=== PATIENT | male | born 1995 | race Caucasian/White ===

== ENCOUNTER 2023-12-30 14:22 | Outpatient (CLI) | payer OTHER, SELFPAY ==
--- NOTE | 2023-12-30 14:28 | XRR_ITS ---
PROCEDURE INFORMATION: Exam: XR Thoracic Spine Exam date and time: 12/30/2023 2:33 PM Age: 28 years old Clinical indication: Pain in thoracic spine; Additional info: Thoracic back pain TECHNIQUE: Imaging protocol: Radiologic exam of the thoracic spine. Views: 3 views. COMPARISON: No relevant prior studies available. FINDINGS: Bones/joints: Normal. No acute fracture. Normal alignment. Soft tissues: Unremarkable. XR/XR thoracic spine 3V* [id number] IMPRESSION: No acute findings.
== END 2023-12-30 14:23 | disposition home or self-care (01) ==
LOC: RAD 14:27
PROVIDERS: PCP Family Medicine; Visit Provider Family Medicine
DX: M54.6 Pain in thoracic spine (principal)
CPT/HCPCS: 72072

== ENCOUNTER 2024-06-03 06:27 | Emergency (ER) | payer OTHER, SELFPAY ==
[2024-06-03 06:28] VITALS: BP 168/94; PULSE 62; RESP 18; TEMP 36.7; O2SAT 96; BMI 41.8
--- NOTE | 2024-06-03 06:32 | CTR_ITS ---
PROCEDURE INFORMATION: Exam: CT Head Without Contrast Exam date and time: 06/03/2024 6:45 AM Age: 29 years old Clinical indication: Stroke-like symptoms; Headache; Left facial droop; Additional info: Symptoms of acute stroke TECHNIQUE: Imaging protocol: Computed tomography of the head without contrast. Radiation optimization: All CT scans at this facility use at least one of these dose optimization techniques: automated exposure control; mA and/or kV adjustment per patient size (includes targeted exams where dose is matched to clinical indication); or iterative reconstruction. Other technique: STROKE PROTOCOL was implemented. COMPARISON: No relevant prior studies available. RADIATION DOSE METRICS: Total DLP (mGy-cm): 1156 FINDINGS: Brain: There is vasogenic edema involving the right temporal lobe with suspected underlying mass adjacent to the inner table of the skull measuring 4.6 cm AP dimension by 2 cm transverse dimension by 6 cm craniocaudad dimension. There is shift of midline structures from right to left measuring 11-12 mm. There is mild hydrocephalus involving the left ventricle with possible trapped temporal horn of the right lateral ventricle. There may be a degree of subfalcine herniation and uncal herniation. No intracranial hemorrhage is appreciated. Cerebral ventricles: Please see above comments. Paranasal sinuses: Visualized sinuses are unremarkable. No fluid levels. Mastoid air cells: Visualized mastoid air cells are well aerated. Bones: Old craniotomy defect is noted involving the right posterior fossa. No bony abnormalities are otherwise appreciated. Soft tissues: Unremarkable. CT/CT head thrombolytic 08060 IMPRESSION: 1. Vasogenic edema on the right with mass effect as above. There appears to be an underlying peripheral mass. Further evaluation with MRI with without IV contrast would be recommended. ASSESSMENT: ASPECTS ([place] Stroke Program Early CT Score) is 10.
[2024-06-03 06:44] VITALS: BP 168/94; PULSE 60; RESP 20; O2SAT 97
--- NOTE | 2024-06-03 07:06 | W.ED.NEUROSD ---
HPI - Neuro Symptoms/Deficit General: Chief Complaint: Neuro Symptoms/Deficit Stated Complaint: L SIDED FACIAL DROOP Time Seen by Provider: 06/03/24 06:30 History of Present Illness: 29-year-old male brought in with slurred speech and left-sided facial droop that they noticed this morning. Patient's states she found him on the floor this morning patient's been having severe right sided headaches for about a week. She reports she been having tension headaches since he hurt his back for a while. That she has been taking all kinds of medication to help with the pain and nothing's been helping. Associated symptoms: Reports headache(s); Deny chest pain, nausea or vomiting Related Data Home Medications Medication Instructions Recorded Confirmed No Known Home Medications 10/18/22 11/29/22 Allergies Allergy/AdvReac Type Severity Reaction Status Date / Time No Known Allergies Allergy Verified 06/03/24 06:32 Review of Systems Const: Denies: fever(s), chills or fatigue Card: Denies: chest pain or palpitations Resp: Reports: wheezing; Denies: dyspnea or productive cough GI: Denies: abdominal pain, nausea or vomiting : Denies: flank pain or difficulty urinating Skin/Breast: Denies: rash Neuro: Reports: headache(s) and Slurred speech present; Denies: weakness in extremities Psych: Denies: anxiety or depression [facility] ED PFSH: Medical History No pertinent past medical history Surgical History History of cranial surgery Physical Exam Const: COMMON NORMALS: no acute distress and patient oriented x3 Resp: COMMON NORMALS: normal respiratory effort, No retractions and No use of accessory muscles Cardio: COMMON NORMALS: regular rate and regular rhythm RATE: regular rate RHYTHM: regular rhythm GI: COMMON NORMALS: Soft to palpation and non-tender PALPATION: Yes Soft to palpation Extremity: COMMON NORMALS: full ROM Neuro: COMMON NORMALS: patient oriented x3 SPEECH: abnormal speech (Mild) Details: slurred OTHER: minimal left facial droop Psych: COMMON NORMALS: mental status grossly normal and Normal thought process present THOUGHT PROCESS: Normal thought process present Skin: COMMON NORMALS: no rashes or lesions noted GENERAL SKIN EXAM: no rashes or lesions noted Course Vital Signs: Vital signs: Vital Signs Temperature 98.0 F 06/03/24 06:28 Pulse Rate 60 06/03/24 07:20 Respiratory Rate 23 H 06/03/24 07:20 Blood Pressure 168/94 06/03/24 07:20 Pulse Oximetry 94 06/03/24 07:20 Oxygen Delivery Me thod Room Air 06/03/24 06:44 MDM - Neuro Symptoms/Deficit Medical Decision Making Patient's imaging is consistent with likely right sided brain mass which would account for his symptoms. Patient was given 10 mg IV dexamethasone due to the vasogenic edema with mass effect. Case reviewed with neurosurgery at [facility] in [place] with accepting patient with ER to ER transfer with accepting ER physician Dr. [place] patient was transferred via helicopter in stable condition Lab Data Radiology Impressions Head CT 06/03/24 06:32 IMPRESSION: 1. Vasogenic edema on the right with mass effect as above. There appears to be an underlying peripheral mass. Further evaluation with MRI with without IV contrast would be recommended. ASSESSMENT: ASPECTS ([place] Stroke Program Early CT Score) is 10. ADDENDUM: 06/03/24 0709 COMMENT: THIS REPORT CONTAINS FINDINGS THAT MAY BE CRITICAL TO PATIENT CARE. The exam findings were verbally communicated by me to TEREZA NUNO via telephone conference at 7:07 AM CDT on 06/03/2024. The findings were acknowledged and understood. Laboratory Results POC Glucose 134 mg/dL (70-110) H 06/03/24 06:31 All radiology interpretation(s) finalized by discharge Discharge Plan Discharge Patient Disposition: Xfer Short-Term Hosp Clinical Impression: Mass, brain Condition: Stable Referrals: Natan George MD [Primary Care Provider] - Coding Level of Care Code ED [employer] for [employer] Jenaro
[2024-06-03 07:18] LABS: Glucose Point of Care 134 mg/dL (70-110)
[2024-06-03 07:20] VITALS: BP 168/94; PULSE 60; RESP 23; O2SAT 94
--- NOTE | 2024-06-03 07:27 | ECG_ITS ---
[facility] Test Date: 2024-06-03 Pat Name: Tee Morocho Department: Room: Gender: Male Continuing Education Specialist: : 1995 Requested By: Kory Nuno Order Number: [id number] Malcolm MD: MILI HERNANDEZ Measurements Intervals [place] Rate: 53 P: 31 MD: 186 QRS: 27 QRSD: 127 T: 62 QT: 423 QTc: 398 Interpretive Statements SINUS BRADYCARDIA MODERATE INTRAVENTRICULAR CONDUCTION DELAY [110+ ms QRS DURATION] No previous ECG available for comparison Electronically Signed On 06-03-2024 20:06:03 CDT by MILI HERNANDEZ [email or web address]
[2024-06-03] MEDS: dexamethasone 10 mg/mL INJ IVP (07:28)
--- NOTE | 2024-06-03 07:38 | PC.NURSE ---
Product/Device Technologist notified of patient transfer.
--- NOTE | 2024-06-03 07:51 | PC.NURSE ---
report called to Stephy Gunter at [facility] in [place], [place]. no further questions at end of report. pt updated of status of transfer. [facility] called and assessing weather.
--- NOTE | 2024-06-03 07:54 | PC.NURSE ---
[facility] confirmed transfer, states arrival approx 45 min.
[2024-06-03 07:56] LABS: Basophils % 0.2 %; Hematocrit 48.3 % (37-53); Lymphocytes # 1.2 10^3/uL (0.8-4.8); Lymphocytes % 10.2 %; Mean Corpuscular HGB Conc 32.7 g/dL (30-55); Mean Corpuscular Hemoglobin 26.7 pg (27-33); Mean Corpuscular Volume 81.7 fl (82-101); Mean Platelet Volume 9.6 fL (7.4-10.4); Monocytes # 0.5 10^3/uL (0.2-0.9); Monocytes % 4.2 %; Neutrophils # 10.04 10^3/uL (1.8-7.7); Neutrophils % 84.6 %; Nucleated Red Blood Cells % 0 %; Platelet Count 470 10^3/cmm (157-399); Red Blood Count 5.91 10^6/uL (3.85-5.65); Red Cell Distribution Width 13.5 % (12.1-15.1); White Blood Count 11.87 10^3/uL (3.29-11.43)
[2024-06-03 08:09] LABS: Partial Thromboplastin Time 25.5 SECONDS (23.9-36.7)
[2024-06-03 08:18] LABS: Alanine Aminotransferase 44 U/L (0-41); Albumin Level 4.4 g/dL (3.5-5.2); Alkaline Phosphatase 71 U/L (40-130); Anion Gap 14.4 (5-19); Aspartate Amino Transferase 16 U/L (0-40); Blood Urea Nitrogen 14 mg/dL (6-20); Calcium 9.4 mg/dL (8.5-10.5); Carbon Dioxide 25 mmol/L (22-29); Chloride 94 mmol/L (98-107); Creatinine Clr Calc Pharmacy 241.1002; Globulin 3.1 g/dL (1.3-4.6); Glomerular Filtration Rate 131.5 mL/min (90-130); Glucose 138 mg/dL (65-115); Osmolality Calculated 271 mOsm/kg (285-295); Potassium 4.4 mmol/L (3.5-5.1); Sodium 129 mmol/L (136-145); Total Bilirubin 0.5 mg/dL (0.15-1.2); Total Protein 7.5 g/dL (6.6-8.7)
[2024-06-03 08:25] VITALS: RESP 22; O2SAT 100
[2024-06-03] MEDS: ondansetron 2 mg/ML SDV 2 mL 4 MG IVP (08:25)
[2024-06-03] MEDS: morphine 4 mg/mL SDV 1 mL IVP (08:25)
[2024-06-03 08:27] VITALS: BP 131/78; PULSE 66; RESP 22; O2SAT 100
--- NOTE | 2024-06-03 09:27 | PC.NURSE ---
this nurse gave report to [facility] crew approx @[id number], [facility] departed facility at approx @2776.
[2024-06-03 09:53] VITALS: BP 134/92; PULSE 63; O2SAT 95
== END 2024-06-03 09:25 | disposition short-term general hospital (02) ==
PROVIDERS: Emergency Provider Student in an Organized Health Care Education/Training Program; PCP Family Medicine
DX: G93.9 Disorder of brain, unspecified (principal)
CPT/HCPCS: 36416; 70450; 80053; 82962; 85025; 85610; 85730; 93005; 96374; 96375; 99285; J1100; J2270; J2405